=== PATIENT | female | born 1970 | race Caucasian/White ===

== ENCOUNTER 2017-10-31 09:03 | Inpatient (IN) | payer OTHER ==
[2017-10-31] VITALS (12 sets, daily range): BP systolic 108–124; BP diastolic 68–81
[~2017-10-31] VITALS: Ht 170.2 cm; Wt 76.2 kg
[~2017-10-31 09:03] MED LIST: ceFAZolin sod 2 GM in D5W 110 ML IVPB ONE
[2017-10-31] MEDS ORDERED: SPIRONOLACTONE PO (10:00)
[2017-10-31] MEDS ORDERED: BUPROPION XL300 MG ORAL (10:00)
[2017-10-31] MEDS ORDERED: HYDROCODON-ACE1 EA15 ORAL (10:00)
[2017-10-31] MEDS ORDERED: IMITREX50 MG ORAL (10:00)
[2017-10-31] MEDS ORDERED: CYMBALTA60 MG ORAL (10:00)
[2017-10-31] MEDS ORDERED: TRAZODONE HCL100 MG ORAL (10:00)
[2017-10-31] MEDS ORDERED: CYCLOBENZAPRINE10 MG ORAL (10:00)
[2017-10-31] MEDS ORDERED: ALPRAZOLAM0.25 MG ORAL (10:00)
[2017-10-31] MEDS ORDERED: SALAGEN5 MG PO (10:00)
[2017-10-31] MEDS ORDERED: FIORICET1 EA ORAL (10:00)
[2017-10-31] MEDS ORDERED: Vancomycin 1gm inj IVPB ONE (10:33)
[2017-10-31] MEDS ORDERED: Thrombin 5000 units TOPIC ONE (10:33)
[2017-10-31] MEDS ORDERED: Thrombin 5000 units spray kit TOPIC ONE (10:34)
[2017-10-31] MEDS ORDERED: Bupivacaine 0.5% Inj 30 ml vial INJ ONE (10:34)
[2017-10-31] MEDS ORDERED: Gelfoam Absorbable 1gm powder pkt TOPIC ONE (10:34)
[2017-10-31] MEDS ORDERED: Bacitracin 50000 Units Vial ONE (10:34)
[2017-10-31] MEDS ORDERED: Midazolam 2mg/2ml Inj ONE (11:00)
[2017-10-31] MEDS ORDERED: Succinylcholine 20mg/ml 10ml vial ONE (11:00)
[2017-10-31] MEDS ORDERED: Propofol 200mg/20ml ONE (11:00)
[2017-10-31] MEDS ORDERED: Ketorolac 30mg Inj ONE (11:00)
[2017-10-31] MEDS ORDERED: Propofol 200mg/20ml IV ONE (11:00)
[2017-10-31] MEDS ORDERED: LR 1000ml ONE (11:00)
[2017-10-31] MEDS ORDERED: NS Irrig 1000ml ONE (11:00)
[2017-10-31] MEDS ORDERED: fentaNYL 100 mcg/2 mL IV ONE (11:00)
[2017-10-31] MEDS ORDERED: Neostigmine 1mg/ml 10ml Inj ONE (11:00)
[2017-10-31] MEDS ORDERED: Sterile Water Irrig 1000ml IRRIG ONE (11:00)
[2017-10-31] MEDS ORDERED: Nimbex 2mg/ml Inj 10ML IVP ONE (11:00)
[2017-10-31] MEDS ORDERED: Propofol 1,000mg/ 100ml btl IV ONE (11:00)
--- NOTE | 2017-10-31 11:10 | Pre-Procedure Note/Attestation ---
Pre-Procedure Note/Attestation Complete Prior to Procedure Procedure Narrative: acdf c56 Indications for Procedure Pre-Operative Diagnosis: radiculopathy cervical and hnp Attestation I attest that I discussed the nature of the procedure; its benefits; risks and complications; and alternatives (and the risks and benefits of such alternatives ), prior to the procedure, with the patient (or the patient's legal contact representative). I attest that, if there was a reasonable possibility of needing a blood transfusion, the patient (or the patient's legal contact representative) was given the [facility] standardized written summary, pursuant to the Fredo Kathy Blood Safety Act ([place] Health and Safety Code # 1645, as amended). I attest that I re-evaluated the patient just prior to the surgery and that there has been no change in the patient's H&P, except as documented below: LEWIS CHEN Oct 31, 2017 11:10
[2017-10-31] MEDS ORDERED: LR 1000ml 1,000 ML IVLG SCH (12:20)
--- NOTE | 2017-10-31 12:20 | Anethesia Preoperative Eval ---
Anesthesia Pre-op PMH/ROS General Date of Evaluation: Oct 31, 2017 Time of Evaluation: 10:48 Anesthesiologist: Lio ASA Score: ASA 2 Mallampati Score Class I : Soft palate, uvula, fauces, pillars visible Class II: Soft palate, uvula, fauces visible Class III: Soft palate, base of uvula visible Class IV: Only hard plate visible Mallampati Classification: Class II Surgeon: Scooter Diagnosis: Cervical radiculopathy Surgical Procedure: ACDF C5-C6 Anesthesia History: none Family History: no anesthesia problems Allergies: Coded Allergies: NAPROXEN (Verified Allergy, Severe, 10/31/17) FACIAL SWELLING SULFA (SULFONAMIDE ANTIBIOTICS) (Verified Allergy, Severe, 10/31/17) FLOATING SWELL- HANDS, FACE AND LIP SWELLED UP NOT AT THE SAME TIME Sesame Seed (Verified Allergy, Intermediate, 10/31/17) UPSET STOMACH Medications: see eMAR Past Medical History Cardiovascular: Denies: HTN, CAD, NE, valve dz, arrhythmia, other Pulmonary: Denies: asthma, COPD, DEION, other Gastrointestinal/Genitourinary: Reports: GERD - mild, Denies: CRI, ESRD, other Neurologic/Psychiatric: Reports: depression/anxiety, other - chronic pain, Denies: dementia, CVA, TIA Endocrine: Denies: DM, hypothyroidism, steroids, other HEENT: Denies: cataract (L), cataract (R), glaucoma, CHEVAK (L), CHEVAK (R), other Hematology/Immune: Denies: anemia, DVT, bleeding disorder, other Musculoskeletal/Integumentary: Denies: OA, RA, DJD, DDD, edema, other PMH Narrative: as above PSxH Narrative: D&C cosmetics Anesthesia Pre-op Phys. Exam Physician Exam Last Vital Signs Date Time Temp Pulse Resp B/P (MAP) Pulse Ox O2 Delivery O2 Flow Rate FiO2 10/31/17 10:06 97.9 75 20 123/81 97 Room Air Constitutional: NAD Neurologic: CN 2-12 intact Cardiovascular: RRR, no M/R/G Gastrointestinal: S/NT/ND Airway Exam Mallampati Score: Class II MO: full Neck: stiff ROM: limited Teeth: intact Dentures: no upper, no lower Anesthesia Pre-op A/P Labs see chart Urine Test Test 10/31/17 09:30 Urine HCG, Qualitative Negative Studies Pre-op Studies: EKG - NSR Risk Assessment & Plan Assessment: ASA 2 Plan: GA with ETT PONV prevention, neuromonitoring Status Change Before Surgery: No Pre-Antibiotics Drug: Ancef 1 gr. Given Within 1 Hr of Incision: Yes Time Given: 11:25 MARIXA RIBEIRO M.D. Oct 31, 2017 12:20
[2017-10-31] MEDS ORDERED: Meperidine 50mg/ml Inj(FOR RIGORS ONLY) IV PRN (12:30)
[2017-10-31] MEDS ORDERED: Ketorolac 30mg Inj IV PRN (12:30)
[2017-10-31] MEDS ORDERED: Metoclopramide 10mg/2ml Inj IVP PRN (12:30)
[2017-10-31] MEDS ORDERED: Midazolam 2mg/2ml Inj IVP PRN (12:30)
[2017-10-31] MEDS ORDERED: Hydromorphone 0.5mg/0.5ml inj IVP PRN (12:30)
[2017-10-31] MEDS ORDERED: DiphenhydrAMINE 50mg/ml Inj IVP PRN (12:30)
--- NOTE | 2017-10-31 13:55 | Brief Operative Note ---
Immediate Post Operative Note Operative Note Pre-op Diagnosis: radiculopathy cervical and hnp Procedure: acdf c56 Post-op Diagnosis: hnp c56 Post-op Diagnosis: same as pre-op Findings: consistent w/pre-op dx studies Surgeon: phi Certified Paralegal: raquel patton assist Anesthesiologist: escobar Anesthesia: general Specimen: none Complications: none Condition: stable Fluids: 1l Estimated Blood Loss: minimal - 50cc Drains: none Implant(s) used?: Yes LEWIS CHEN Oct 31, 2017 13:55
[2017-10-31] MEDS ORDERED: Norco 7.5mg/325mg tab ORAL PRN ×2 (14:00)
[2017-10-31] MEDS ORDERED: HYDROmorphone 1mg/ml Carpuject SUBQ PRN (14:00)
[2017-10-31] MEDS ORDERED: Naloxone 0.4mg/ml Inj IVP PRN (14:00)
[2017-10-31] MEDS ORDERED: Norco 5mg/325mg tab ORAL PRN (14:00)
--- NOTE | 2017-10-31 14:22 | Immediate Post-Op Evaluation ---
Immediate Post-Op Evalulation Immediate Post-Op Evalulation Procedure: ACDF C5-C6 Date of Evaluation: Oct 31, 2017 Time of Evaluation: 14:21 IV Fluids: 1100 Blood Products: none Estimated Blood Loss: 50 Urinary Output: none Blood Pressure Systolic: 114 Blood Pressure Diastolic: 76 Pulse Rate: 72 Respiratory Rate: 20 O2 Sat by Pulse Oximetry: 99 Temperature (Fahrenheit): 97.6 Pain Score (1-10): 2 Nausea: No Vomiting: No Complications none Patient Status: reacts, patent, extubated, none Hydration Status: adequate MARIXA RIBEIRO M.D. Oct 31, 2017 14:22
[2017-10-31] MEDS: D5 1/2NS 1,000 ML IV SCH (17:00)
--- NOTE | 2017-10-31 17:15 | Diagnostic Imaging Report ---
Indication: PAIN, intraoperative Technique: Intraoperative images Comparison: None Findings: Initial image demonstrates a surgical tool projected over the T6 vertebral body. Subsequent image demonstrates a surgical tool projected over the C6-7 disc. Subsequent images demonstrate anterior fusion hardware and a disc spacer at C5-6. Impression: Intraoperative imaging, as described
[2017-10-31] MEDS: Docusate 100mg cap ORAL SCH (18:00)
[2017-10-31] MEDS: ceFAZolin sod 1 GM in D5W 55 ML IV SCH (21:56)
[2017-10-31] MEDS ORDERED: TraZODone 100mg tab ORAL ONE (23:30)
[2017-10-31] MEDS ORDERED: ALPRAZolam 0.25mg tab ORAL ONE (23:45)
[2017-11-01 00:39] VITALS: BP 109/58
[2017-11-01] MEDS: D5 1/2NS 1,000 ML IV SCH ×2 (03:00→13:00)
[2017-11-01] MEDS: ceFAZolin sod 1 GM in D5W 55 ML IV SCH ×2 (03:54→10:22)
[2017-11-01 04:00] VITALS: BP 134/80
[2017-11-01] MEDS ORDERED: SUMAtriptan 50mg tab ORAL PRN (08:30)
[2017-11-01] MEDS: DULoxetine 30mg cap ORAL SCH ×2 (09:00→15:43)
[2017-11-01] MEDS: Docusate 100mg cap ORAL SCH (09:00)
[2017-11-01] MEDS: BuPROPion SR 150mg tab ORAL SCH ×2 (09:00→15:42)
[2017-11-01 09:07] VITALS: BP 114/79
[2017-11-01] MEDS ORDERED: SUMAtriptan 50mg tab ORAL ONE (10:00)
--- NOTE | 2017-11-01 10:28 | 48 Hour Post Anesthesia Eval ---
Post Anesthesia Evaluation Procedure: ACDF C5-C6 Date of Evaluation: Nov 01, 2017 Time of Evaluation: 10:00 Blood Pressure Systolic: 145 0: 87 Pulse Rate: 66 Respiratory Rate: 16 Temperature (Fahrenheit): 98.5 O2 Sat by Pulse Oximetry: 98 Airway: patent Nausea: No Vomiting: No Hydration Status: adequate Mental Status/LOC: patient returned to baseline Post-Anesthesia Complications: none Follow-up care needed: patient intructions given Cornelius Buckley M.D. Nov 01, 2017 10:28
[2017-11-01 12:07] VITALS: BP 113/73
[2017-11-01] MEDS ORDERED: TransDerm Scop 1mg/72HR Patch TDERMAL ONE (14:45)
[2017-11-01] MEDS ORDERED: SOMA350 MG PO (16:57)
[2017-11-01] MEDS ORDERED: TRAMADOL HCL50 MG ORAL (16:57)
--- NOTE | 2017-11-01 16:59 | General Progress Note ---
Progress Note Progress Note Doing well post op with no neck pain or arm pain Voided and walking Brace in place 5/5 motor exam in the UE and LE Calves soft and NT A: Doing well P: DC today with pain meds Fu in 7 to 10 days Continue with collar LEWIS CHEN Nov 01, 2017 16:59
[2017-11-01] MEDS ORDERED: TraZODone 100mg tab ORAL SCH ×2 (21:00)
[2017-11-02] MEDS ORDERED: SUMAtriptan 50mg tab ORAL PRN (08:30)
--- NOTE | 2017-11-04 11:05 | Discharge Summary ---
Discharge Summary Hospital Course Date of Admission Oct 31, 2017 at 09:03 Date of Discharge Nov 01, 2017 at 17:14 Admitting Diagnosis cervical radiculopathy Reason for Hospitalization: elective surgery HPI Jeaneth Lundy is a 46 year old female who was admitted on Oct 31, 2017 at 09: 03 for Cervical Radiculopathy Procedures 10/31/[address] Helms ACDF C5-6 Hospital Course s/p surgery course of recovery uneventful neurovascular intact , motor strength BUE/BLE 5/5 pain controlled with current analgesics ambulated cervical collar diet soft as tolerated, able to tolerate throat lozenges prn voided dressing C/D/I patient was stable for discharge fup with surgeon as outpatient as advised by surgeon continue cervical collar DISCHARGE DIAGNOSIS CERVICAL RADICULOPATHY HERNIATED NUCLEUS PUlPOSA c 5-6 s/p ACDF C 5-6 Discharge Medications Continued Medications: Acetamin/Butalbital/Caffeine* (Fioricet*) 1 Ea Tab 1 TAB ORAL Q4H, TAB Alprazolam* (Xanax*) 0.25 Mg Tablet 0.25 MG ORAL TID, TAB Bupropion Hcl* (Wellbutrin*) 300 Mg Tab.er.24h 300 MG ORAL DAILY, #30 TAB 0 Refills Carisoprodol* (Soma*) 350 Mg Tablet 350 MG PO Q6H, TAB Duloxetine Hcl* (Cymbalta*) 60 Mg Capsule.dr 60 MG ORAL DAILY, CAP Hydrocodone/Acetaminophen 5-325* (Hydrocodone/Acetaminophen 5-325*) 1 Each Tablet 1 TAB ORAL PRN for For Pain, #30 TAB 0 Refills Pilocarpine (Pilocarpine HCl) 5 Mg Tablet 5 MG PO DA, TAB Sumatriptan Succinate* (Imitrex*) 50 Mg Tablet 50 MG ORAL NEEDED, TAB Tramadol Hcl* (Ultram*) 50 Mg Tablet 50 MG ORAL Q6H PRN for For Pain, #30 TAB 0 Refills Trazodone Hcl* (Desyrel*) 100 Mg Tablet 100 MG ORAL BEDTIME, TAB [Spironolactone] () PO DA Discontinued Medications: Cyclobenzaprine Hcl* (Flexeril*) 10 Mg Tablet 10 MG ORAL THREE TIMES A DAY, TAB Discharge Condition Upon Discharge: stable Discharge Disposition Patient was discharged to Home () Discharge Diagnoses: Discharge Instructions Discharge Instructions Special Instructions I have been assigned to complete a D/C Summary on this account. I was not involved in the patient management Isela Rouse NP ([place]) Nov 04, 2017 11:05
--- NOTE | 2017-11-05 22:30 | Operative Note - Dictated ---
DATE OF OPERATION: 10/31/2017 PREOPERATIVE DIAGNOSIS: C5-C6 disk protrusion with stenosis and left upper extremity radiculopathy. POSTOPERATIVE DIAGNOSIS: C5-C6 disk protrusion with stenosis and left upper extremity radiculopathy. PROCEDURE PERFORMED: 1. Anterior cervical interbody arthrodesis at C5-C6. 2. Anterior cervical instrumentation at C5-C6. 3. Anterior cervical radical diskectomy and decompression of spinal canal and anterior foraminotomy at C5-C6. 4. Implantation of PEEK interbody device. 5. Use of allograft and autograft for arthrodesis at C5-C6. 6. Intraoperative use of microscope. 7. Intraoperative use of fluoroscopy. 8. SSEP neurophysiological monitoring and EMG. SURGEON: Andrew Helms M.D. PROGRAM REP: Sinai Alvarez nurse ophthalmology assistant. ANESTHESIOLOGIST: Obi Vaca M.D. ANESTHESIA: General endotracheal anesthesia. EBL: Less than 25 mL. ANTIBIOTICS: 2 g of IV Ancef. COMPLICATIONS: None. INDICATIONS: This is a pleasant female, who failed nonoperative treatments and option for above treatment was given. Risks, alternatives, and benefits were discussed and the patient wished to proceed. DESCRIPTION OF OPERATION: The patient was brought to the operating room supine on a stretcher. Appropriate IV lines were placed by the anesthesiologist. 2 g of Ancef was administered. A surgical time-out was called. The patient was induced and intubated without complication. At this point, the sequential compression devices were placed on the bilateral lower extremities. The arms were tucked by the sides. Preoperative fluoroscopy was done to plan the incision on the anterior right side of the neck. At this point, the neck was prepped and draped in usual sterile fashion with alcohol, chlorhexidine scrub, ChloraPrep, and [place]oban draping. Me and my sales and marketing assistant were prepped and gowned appropriately. At this point, an incision was carried out on the right anterior side of the neck. A blunt dissection was carried out medial to the sternocleidomastoid muscle to the level of the prevertebral fascia with blunt dissection and Kitner dissection was carried out at C5-C6. A radiopaque spinal needle was placed at the C5-C6 level and lateral fluoroscopy revealed the correct level. At this point, laser set up operator retractors were set into place. The intraoperatively sterilely draped microscope was used throughout the case. SSEP and EMG were used throughout the case as well and remained stable. At this point, with the use of a #15 blade, annulotomy was made and with the use of straight and curved curettes, a high-speed drill #2, #3 and #1 Kerrison punches, a radical diskectomy was accomplished. Endplate bone was preserved, endplate cartilage was removed, and drilling of the posterior aspect of the vertebral body was done. Autograft was saved for later implantation for the arthrodesis and with a Microsect #2 curette and the posterior longitudinal ligament was removed. There was a large disk herniation centrally into the left side causing compression of the spinal cord as well as the exiting nerve root. This was removed with #1 and #2 Kerrison punches and a complete decompression of the spinal canal, central canal, lateral recesses, and the foramina entailed with complete decompression of the exiting nerve root. At this point, a trial from the [employer] system was used and a #6 PEEK interbody spacer was chosen, packed with autograft and Rangel allograft, and tamped into place at C5-C6. A [place] plate was placed and fixed to the anterior surface of the C5 and C6 with #2, #12 and #14 screws. Each screw had excellent purchase, sat below the locking mechanism appropriately, and AP and lateral fluoroscopy revealed all instrumentation to be in excellent position. The wound was copiously irrigated multiple times throughout the case before and after implantation of the instrumentation, and at this point, attention was diverted to closure. Hemostasis was achieved. The platysma was closed with #3-0 Vicryl sutures. The subcuticular layers were closed with 4-0 Monocryl. Dermabond sterile dressing tape was placed. C-collar was placed. The patient was extubated in stable condition and was taken to the recovery room in stable condition. Andrew Helms M.D. DR: LIZ JOB#: [id number] CC:
== END 2017-11-01 17:14 | disposition home or self-care (01) | DRG 473 ==
LOC: SDSOVERFLO 09:03 → 3E 15:40
DX: M50.122 Cervical disc disorder at C5-C6 level with radiculopathy (principal); M35.00 Sjogren syndrome, unspecified; M48.02 Spinal stenosis, cervical region; Z88.2 Allergy status to sulfonamides
CPT/HCPCS: 36415; 72040; 76001; 81025; 86850; 86900; 86901; 87081; 94003; 94150; J2250; J2405; J2710